=== PATIENT | female | born 1985 | race African-American/Black ===

== ENCOUNTER 2021-11-26 05:25 | Inpatient (IN) | payer BC, SELFPAY ==
[2021-11-25 10:43] LABS: BILIRUBIN,URINE NEGATIVE (NEGATIVE); BLOOD, URINE 3+ (NEGATIVE); CLARITY/URINE SL CLOUDY (CLEAR); COLOR,URINE YELLOW (YELLOW); GLUCOSE,URINE NEGATIVE (NEGATIVE); KETONES,URINE NEGATIVE (NEGATIVE); LEUKOCYTE ESTERASE ,URINE NEGATIVE (NEGATIVE); NITRITE, URINE NEGATIVE (NEGATIVE); PH,URINE 6.5 (5.0-8.0); PROTEIN URINE NEGATIVE (NEGATIVE); UROBILINOGEN,URINE 0.2 (0.2-1.0)
[2021-11-25 10:52] LABS: BASOPHILS # (AUTO) 0.1 K/uL (0.0-0.2); BASOPHILS % (AUTO) 0.8 % (0.0-2.0); EOSINOPHILS % (AUTO) 0.7 % (0.0-4.0); HEMATOCRIT 38.2 % (36-48); LYMPHOCYTES # (AUTO) 1.6 K/uL (1.0-5.5); LYMPHOCYTES % (AUTO) 23.2 % (20.5-51.5); MEAN CORPUSCULAR HEMOGLOBIN 27 pg (27-31); MEAN CORPUSCULAR HGB CONC 34 % (32-36); MEAN CORPUSCULAR VOLUME 78 fL (79.0-98.0); MONOCYTES # (AUTO) 0.9 K/uL (0.0-1.0); MONOCYTES % (AUTO) 13.3 % (1.7-9.3); NEUTROPHILS # (AUTO) 4.3 K/uL (1.8-7.7); PLATELET COUNT (AUTO) 294 K/uL (130-430); RED BLOOD CELL COUNT(AUTO) 4.88 MIL/uL (4.2-6.2); RED CELL DISTRIBUTION WIDTH 17.1 % (9.0-15.0); WHITE BLOOD COUNT (AUTO) 6.9 K/uL (4.8-10.8)
[2021-11-25 10:58] LABS: BACTERIA,URINE FEW /HPF (None Seen); RBC,URINE 20-50 /HPF (0-3); WBC,URINE NONE SEEN /HPF (0-3)
[~2021-11-26] VITALS: Ht 162.6 cm; Wt 76.2 kg
[2021-11-26] MEDS ORDERED: FERR-69 PO (06:30)
[2021-11-26] MEDS ORDERED: HYDR12.55 PO (06:30)
[2021-11-26] MEDS ORDERED: MULT-1089 PO (06:30)
[2021-11-26] MEDS ORDERED: ELAG1CAP PO (06:30)
[2021-11-26] MEDS ORDERED: AMLO5TAB4 PO (06:30)
[2021-11-26] MEDS ORDERED: CEFAZOLIN SOD 1 GM in D5W 50 ML IV ONE (07:00)
[2021-11-26] MEDS ORDERED: LABETALOL 100 MG/ 20ML VIAL ONE (07:37)
[2021-11-26] MEDS ORDERED: NS 100 ML BAG ONE (07:37)
[2021-11-26] MEDS ORDERED: LR 1,000 ML IV.SOLN IV ONE (07:37)
[2021-11-26] MEDS ORDERED: ONDANSETRON HCL 4 MG/2 ML VIAL ONE (07:37)
[2021-11-26] MEDS ORDERED: HYDROmorphone 2 MG/ML VIAL ONE (07:37)
[2021-11-26] MEDS ORDERED: KETOROLAC TROMETHAMINE 30 MG VIAL ONE (07:37)
[2021-11-26] MEDS ORDERED: fentaNYL CITRATE 250 MCG/5 ML AMP ONE (07:37)
[2021-11-26] MEDS ORDERED: SUCCINYLCHOLINE CHLORIDE 20 MG/ML(QUELICIN) ONE (07:37)
[2021-11-26] MEDS ORDERED: DEXAMETHASONE SOD PHOSPHATE 4 MG/ML VIAL ONE (07:37)
[2021-11-26] MEDS ORDERED: METOCLOPRAMIDE HCL 10 MG/2 ML VIAL ONE (07:37)
[2021-11-26] MEDS ORDERED: SUGAMMADEX SODIUM 200 MG/2 ML VIAL IV ONE (07:37)
[2021-11-26] MEDS ORDERED: NS IRRIG SOLN 1000 ML IR ONE (07:37)
[2021-11-26] MEDS ORDERED: ROCURONIUM BROMIDE 10 MG/ML (ZEMURON) ONE (07:37)
[2021-11-26] MEDS ORDERED: MIDAZOLAM HCL 5 MG/5 ML VIAL ONE (07:37)
[2021-11-26] MEDS ORDERED: SEVOFLURANE 15 MIN GAS INH ONE (07:37)
[2021-11-26] MEDS ORDERED: ACETAMINOPHEN I.V. 1000 MG 100 ML IV ONE (07:55)
[2021-11-26] MEDS ORDERED: HYDROmorphone 2 MG/ML VIAL IVP PRN (08:00)
[2021-11-26] MEDS ORDERED: NALOXONE HCL 0.4 MG/ML AMP (NARCAN) IVP PRN ×2 (08:00)
[2021-11-26] MEDS ORDERED: HYDROmorphone 1 MG/ML INJ. CARTRIDGE IVP PRN (08:00)
[2021-11-26] MEDS ORDERED: ONDANSETRON HCL 4 MG/2 ML VIAL IVP PRN (08:00)
[2021-11-26] MEDS ORDERED: MORPHINE 2 MG/ML INJ. SYRINGE IVP PRN (10:15)
[2021-11-26] MEDS ORDERED: MORPHINE 4 MG INJ. 4 MG/ML VIAL IVP PRN (10:15)
[2021-11-26 10:25] VITALS: BP_SYST 121
[2021-11-26] MEDS ORDERED: HYDROmorphone 1 MG/ML INJ. CARTRIDGE ONE ×2 (10:48→11:07)
[2021-11-26] MEDS: HYDROmorphone 1 MG/ML INJ. CARTRIDGE IVP PRN ×2 (10:50→10:58)
[2021-11-26] MEDS: D5LR 1,000 ML IV SCH (13:20)
[2021-11-26] MEDS ORDERED: ceFAZolin SODIUM 2 GM in D5W 100 ML IV SCH (14:00)
[2021-11-26 17:33] LABS: BASOPHILS % (AUTO) 0.1 % (0.0-2.0); HEMATOCRIT 27.5 % (36-48); HEMOGLOBIN 9.4 g/dL (12.0-16.0); LYMPHOCYTES % (AUTO) 6.4 % (20.5-51.5); MEAN CORPUSCULAR HEMOGLOBIN 27 pg (27-31); MEAN CORPUSCULAR HGB CONC 34 % (32-36); MEAN CORPUSCULAR VOLUME 78 fL (79.0-98.0); MONOCYTES # (AUTO) 1.2 K/uL (0.0-1.0); MONOCYTES % (AUTO) 7.5 % (1.7-9.3); NEUTROPHILS # (AUTO) 13.8 K/uL (1.8-7.7); PLATELET COUNT (AUTO) 250 K/uL (130-430); RED BLOOD CELL COUNT(AUTO) 3.54 MIL/uL (4.2-6.2)
[2021-11-26] MEDS: SIMETHICONE 80 MG TAB.CHEW PO PRN ×2 (17:49→21:17)
[2021-11-26] MEDS ORDERED: HYDROcodone/ACETAMIN 5-325 MG TAB (NORCO/ VICODIN) ONE (19:49)
[2021-11-26] MEDS: amLODIPine BESYLATE 5 MG TABLET PO SCH (21:16)
[2021-11-26] MEDS: HYDROCHLOROTHIAZIDE 12.5 MG CAPSULE (HCTZ) PO SCH (21:16)
[2021-11-26] MEDS: CEFAZOLIN SOD 2 GM in D5W 50 ML IV SCH (21:18)
[2021-11-27] MEDS: D5LR 1,000 ML IV SCH (00:05)
[2021-11-27] MEDS: HYDROcodone/ACETAMIN 5-325 MG TAB (NORCO/ VICODIN) PO PRN ×5 (05:13→21:32)
[2021-11-27] MEDS: SIMETHICONE 80 MG TAB.CHEW PO PRN ×2 (05:13→21:22)
[2021-11-27] MEDS: CEFAZOLIN SOD 2 GM in D5W 50 ML IV SCH (05:18)
[2021-11-27] MEDS ORDERED: DIPHENHYDRAMINE HCL 12.5 MG/5 ML UDC PO ONE (05:45)
[2021-11-27] MEDS ORDERED: DIPHENHYDRAMINE HCL 25 MG CAPSULE ONE (05:54)
[2021-11-27 06:34] LABS: BASOPHILS % (AUTO) 0.3 % (0.0-2.0); EOSINOPHILS % (AUTO) 0.1 % (0.0-4.0); HEMATOCRIT 25.2 % (36-48); HEMOGLOBIN 8.4 g/dL (12.0-16.0); LYMPHOCYTES # (AUTO) 1.6 K/uL (1.0-5.5); LYMPHOCYTES % (AUTO) 14.8 % (20.5-51.5); MEAN CORPUSCULAR HEMOGLOBIN 26 pg (27-31); MEAN CORPUSCULAR HGB CONC 33 % (32-36); MEAN CORPUSCULAR VOLUME 79 fL (79.0-98.0); MONOCYTES # (AUTO) 1.3 K/uL (0.0-1.0); MONOCYTES % (AUTO) 11.7 % (1.7-9.3); NEUTROPHILS # (AUTO) 8.1 K/uL (1.8-7.7); NEUTROPHILS % (AUTO) 73.1 % (40.0-70.0); PLATELET COUNT (AUTO) 232 K/uL (130-430); RED BLOOD CELL COUNT(AUTO) 3.22 MIL/uL (4.2-6.2); RED CELL DISTRIBUTION WIDTH 16.9 % (9.0-15.0)
[2021-11-27] MEDS ORDERED: NON-FORMULARY MEDICATION MC SCH (07:00)
[2021-11-27] MEDS ORDERED: HYDR-3917 PO (07:52)
[2021-11-27] MEDS: TRIAMCINOLONE ACETONIDE 0.1% 15 GM OINT..GM. TP PRN ×2 (08:14→21:20)
[2021-11-27] MEDS: MULTIVITAMINS TAB 1 TABLET PO SCH (16:55)
[2021-11-27] MEDS ORDERED: NON-FORMULARY MEDICATION (Hydrochlorothiazide 12.5 MG) PO SCH (21:00)
[2021-11-27] MEDS ORDERED: amLODIPine BESYLATE 5 MG TABLET PO SCH (21:00)
[2021-11-27] MEDS ORDERED: amLODIPine BESYLATE 5 MG TABLET ONE (21:10)
[2021-11-27] MEDS ORDERED: HYDROCHLOROTHIAZIDE 12.5 MG CAPSULE (HCTZ) ONE (21:11)
[2021-11-27] MEDS: HYDROCHLOROTHIAZIDE 12.5 MG CAPSULE (HCTZ) PO SCH (21:21)
[2021-11-27] MEDS: amLODIPine BESYLATE 5 MG TABLET PO SCH (21:21)
[2021-11-28] MEDS: SIMETHICONE 80 MG TAB.CHEW PO PRN ×2 (02:55→08:29)
[2021-11-28] MEDS: HYDROcodone/ACETAMIN 5-325 MG TAB (NORCO/ VICODIN) PO PRN ×4 (02:56→08:17)
[2021-11-28] MEDS: MULTIVITAMINS TAB 1 TABLET PO SCH (08:29)
== END 2021-11-28 10:23 | disposition home or self-care (01) | DRG 743 ==
LOC: UNDOADMIN 05:25 → SMU 05:25 → SDS 05:25 → EDSTATUS 07:30 → SPU 12:22 → UNDOADMIN 11-27 07:00 → SPU 11-27 07:00 → SDS 11-27 07:00 → UNDODISIN 11-28 10:23
PROVIDERS: ADMIT Obstetrics & Gynecology; ATTEND Obstetrics & Gynecology
PROC: 0UB90ZZ Excision of Uterus, Open Approach (ICD-10-PCS; principal; 2021-11-26 07:30)
DX: D25.1 Intramural leiomyoma of uterus (principal); N85.2 Hypertrophy of uterus; N92.1 Excessive and frequent menstruation with irregular cycle; I10 Essential (primary) hypertension; D64.9 Anemia, unspecified; E55.9 Vitamin D deficiency, unspecified; Z20.822 Contact with and (suspected) exposure to COVID-19
CPT/HCPCS: 36415; 81000; 84703; 85025; 86886; 86900; 86901; 87081; 88305; J0131; J0330; J0690; J1100; J1170; J1885; J2250; J2405; J2765; J3010; J3490; J7060; J7120; Q0163